=== PATIENT | male | born 1965 | race Caucasian/White ===

== ENCOUNTER 2017-05-27 12:53 | Emergency (ER) | payer OTHER, SELFPAY ==
[2017-05-27 12:54] VITALS: BP 147/56; PULSE 66; RESP 16; TEMP 36.6; O2SAT 95; BMI 39.1
--- NOTE | 2017-05-27 13:08 | CT_ITS ---
STUDY: CT ABDOMEN AND PELVIS WITHOUT CONTRAST REASON FOR EXAM: Male, 51 years old. Abdominal pain. Colonic polyps. RADIATION DOSAGE (If Supplied By Facility): CTDIvol = ( 23.14 ) mGy, DLP = ( 1283.38 ) mGycm TECHNIQUE: Transaxial images were obtained from the dome of the diaphragm to the symphysis pubis without oral contrast, and without intravenous contrast. Sagittal and coronal images were reconstructed. Individualized dose optimization techniques were used for this CT. COMPARISON: None. FINDINGS: Minimal degree of bibasilar atelectasis. The visualized portions of the heart are within normal limits. Normal liver. Normal gallbladder and extrahepatic biliary system. Normal spleen. Normal pancreas. Normal bilateral adrenal glands. Normal right kidney. Normal left kidney. Normal visualized stomach. Normal small intestine. There is diverticulosis, with thickening of the colon wall, and pericolonic inflammation changes consistent with acute diverticulitis. The appendix is visualized and appears normal. Normal abdominal aorta. Normal inferior vena cava. Normal retroperitoneum. Normal urinary bladder. There are prostatic calcifications. There is a small umbilical hernia containing fat. Small right inguinal hernia containing fat. There are degenerative changes of the visualized lumbar spine. CT/Abdomen/Pelvis without Cont IMPRESSION: Findings in keeping with a noncomplicated sigmoid diverticulitis. Electronically Signed: Bandar Castañeda MD at 15:00 EST Tel [phone], Service support ,
[2017-05-27 13:24] LABS: Absolute Lymphocyte Count 1.68 X10^3/ul (0.83-4.51); Absolute Neutrophil Count 6.6 X10^3/uL (2.0-7.7); Basophil# 0.04 X10^3/uL; Basophil% 0.4 % (0-1); Eosinophil# 0.03 X10^3/uL; Eosinophils% 0.3 % (0-5); Hematocrit 47.1 % (40-54); Hemoglobin 15.9 g/dl (13.0-16.5); Lymphocyte # 1.68 X10^3/ul (4.0); Mean Corp Hgb Conc 33.8 g/gl (32-36); Mean Corpuscular Hgb 29.8 pg (27.0-32.0); Mean Corpuscular Volume 88.4 fL (80-94); Mean Platelet Vol. 9.3 fl (6.2-12.0); Monocyte# 0.89 X10^3/uL; Monocyte% 9.6 % (0-10); Neutrophil # 6.64 X10^3/uL (2.7-7.7); Neutrophil % 71.4 % (47-70); Platelet Count 220 K/mm3 (150-450); RBC Distribution Width CV 13.1 % (11.6-14.6); RBC Distribution Width SD 42.1 fl (35.1-43.9); Red Blood Count 5.33 M/mm3 (4.6-6.2); White Blood Count 9.3 K/mm3 (4.4-11.0)
[2017-05-27] MEDS: 0.9% Normal Saline 1,000 ML 125 ML IV (13:25)
[2017-05-27 13:26] LABS: POSITIVE COUNT NO; POSITIVE DIFFERENTIAL NO; POSITIVE MORPHOLOGY NO
[2017-05-27 13:37] LABS: Anion Gap 7 (5-15); BUN 15 mg/dL (7-18); BUN/Creat Ratio 11.5 RATIO (10-20); Calcium,Total 9.2 mg/dL (8.5-10.1); Chloride 104 mmol/L (98-107); Creatinine, Serum 1.31 mg/dL (0.70-1.30); EST Glomerular Filtration Rate 61 mL/min (>60); Est Glom Filt Rate - Afr Amer 74 mL/min (>60); Estimated Creatinine Clearance 65.21 ml/min; Glucose 114 mg/dL (74-106); Potassium 3.7 mmol/L (3.5-5.1); Sodium Level 139 mmol/L (136-145)
[2017-05-27 13:49] LABS: Bacteria 0 SEEN /hpf (None Seen); Mucous, Urine 0 SEEN /hpf (<or=2+); Red Blood Cells-Urine 0 SEEN /hpf (0-5); Squamous Epithelial Cells - UA 0 SEEN /hpf (0-5); White Blood Cells 0 SEEN /hpf (0-5)
[2017-05-27 13:52] LABS: Color, Urine Yellow (Yellow); Glucose, Dipstick Normal (Normal); Ketone-Dipstick Negative (Negative); Leukocyte Esterase-Dipstick Negative /ul (Negative); Nitrite-Dipstick Negative (Negative); Occult Blood-Urine Negative /ul (Negative); Protein-Dipstick Negative (Negative); Urine Bilirubin Dipstick Negative (Negative); Urine Clarity Clear (Clear); Urine Urobilinogen Normal (Normal); Urine pH 6.5 (5.0 - 8.0)
--- NOTE | 2017-05-27 15:20 | ED.DCSUM_ITS ---
- ER Visit Summary Date of Service: 05/27/17 Chief Complaint: [Abdominal pain] History of Present Illness: The patient is a 51 M [presents to the emergency department with chief complaint of abdominal pain. Patient states that his pain started 2 days ago. He describes it as lower abdomen. Patient describes urinary frequency without dysuria. Patient at times peeing small amounts but at times urinating large volumes. Patient denies any fever. He denies any pain in his back. Denies any nausea or vomiting. Patient denies any blood in his stool or black tarry stool.] Physical Examination: [HEENT-PERRLA, EOMI. Cranial nerves II through XII grossly intact. TMs clear. Mucous membranes moist. No adenopathy. Cardiovascular-regular rate and rhythm without murmur or ectopy Lungs-clear to auscultation, chest wall stable without crepitus or subcu emphysema Abdomen-normoactive bowel sound. Patient has tenderness over the suprapubic region with some guarding. There is no rebound, rigidity or peritoneal signs. Extremities-intact ?4, normal range of motion, normal pulses, atraumatic] Test Results: [Bladder scan showed 11 cc of urine. CBC with differential showed a white count of 9.3, hemoglobin 15.9, hematocrit 47, platelets 220. Chemistries were unremarkable. Urinalysis was normal. CT scan of the abdomen and pelvis showed acute sigmoid diverticulitis without evidence of perforation or abscess.] Emergency Department Course and Treatment: [Patient did not anything for pain in the emergency department. Patient was medicated with Cipro and Flagyl.] Treatment Plan: [She will be discharged home with a prescription for Cipro and Flagyl. Patient is now anything for pain for home.] Disposition: [Discharged home in stable condition. Patient advised to follow- up with his primary care physician within next 5-7 days. Patient to return if worsening pain, fever, bloody stools, or condition should worsen in any way.] Impression: [Acute sigmoid diverticulitis] This note was generated with [employer] dictation software. It may contain incorrect words, spelling, and punctuation that were not noted in review of the chart prior to signing ED Disposition - Plan for ED Patient: Chief Complaint: Abd Pain Referrals: Sathish Ashford MD [Primary Care Provider] -
--- NOTE | 2017-05-27 15:22 | ED.DEP ---
ED Disposition - Plan for ED Patient: Chief Complaint: Abd Pain Instructions: ED Diverticulitis Prescriptions: Ciprofloxacin [Cipro] 500 mg PO BID #20 tab Metronidazole [Flagyl] 500 mg PO Q6H #40 tab Referrals: Sathish Ashford MD [Primary Care Provider] - 5-7 Days
[2017-05-27] MEDS: Ciprofloxacin 500 MG Tablet PO (15:35)
[2017-05-27 15:41] VITALS: BP 132/71; PULSE 84; RESP 16; O2SAT 98
== END 2017-05-27 15:42 | disposition home or self-care (01) ==
PROVIDERS: Emergency Provider Emergency Medicine; Family Provider Family Medicine; PCP Family Medicine
DX: K57.32 Diverticulitis of large intestine without perforation or abscess without bleeding (principal); I10 Essential (primary) hypertension; I49.3 Ventricular premature depolarization; Z79.82 Long term (current) use of aspirin; Z79.899 Other long term (current) drug therapy
CPT/HCPCS: 74176; 80048; 81001; 85025; 96360; 96361; 99284; J7030; A4216